=== PATIENT | female | born 1985 | race Caucasian/White ===

== ENCOUNTER 2021-01-12 18:17 | Outpatient (CLI) | payer BC | END 2021-01-12 18:18 | disposition home or self-care (01) | LOC: NAV RAD 18:17 | PROVIDERS: ATTEND Family Medicine | DX: R00.0 Tachycardia, unspecified (principal); R06.09 Other forms of dyspnea | CPT/HCPCS: 71046 ==

== ENCOUNTER 2021-11-02 15:19 | Outpatient (CLI) | payer BC | END 2021-11-02 15:20 | disposition home or self-care (01) | LOC: NAV RAD 15:19 | PROVIDERS: ATTEND Family Medicine | DX: M25.512 Pain in left shoulder (principal); M25.522 Pain in left elbow ==